=== PATIENT | female | born 1960 | race Caucasian/White ===

== ENCOUNTER 2016-10-28 11:33 | Inpatient (IN) | payer OTHER ==
[~2016-10-28] VITALS: Ht 165.1 cm; Wt 56.8 kg
[2016-10-28 14:11] LABS: BASOPHILS 0.1 % (0.0-2.0); EOSINOPHILS 0.1 % (0-7); HEMOGLOBIN 10.2 g/dL (12-16); IMMATURE GRANULOCYTES 0.3 % (0-5); LYMPHOCYTES 3.7 % (15-50); MCH 29.2 pg (26.0-34.0); MCHC 32.9 g/dL (31.0-37.0); MCV 88.8 fL (80.0-100.0); MEAN PLATELET VOLUME 9.1 fL (7.4-10.4); MONOCYTES 7.9 % (2-11); NEUTROPHILS 87.9 % (40-80); PLATELET COUNT 228 10x3/uL (130-400); RBC 3.49 10x6/uL (4.00-5.40); RDW 12.7 % (11.5-14.5); WBC 17.5 10x3/uL (4.8-10.8)
[2016-10-28 14:38] LABS: ALBUMIN 2.3 g/dL (3.4-5.0); BILIRUBIN - TOTAL 0.4 mg/dL (0.2-1.3); CALCIUM 8.4 mg/dL (8.5-10.1); CARBON DIOXIDE 23.3 mmol/L (21.0-32.0); CREATININE - SERUM 1.5 mg/dL (0.6-1.3); POTASSIUM - SERUM 3.3 mmol/L (3.5-5.1); PROTEIN - SERUM 5.5 g/dL (6.4-8.2)
[2016-10-28 16:00] VITALS: BP 139/77
--- NOTE | 2016-10-28 19:30 | NUR ---
resting quietly [id number] resp unlabored deniesany needs or discomfort nad noted
[2016-10-28 20:00] VITALS: BP 116/57
[2016-10-29] VITALS: BP 111/68
[2016-10-29 04:00] VITALS: BP 118/73
[2016-10-29 08:00] VITALS: BP 166/68
--- NOTE | 2016-10-29 08:45 | NUR ---
PATIENT IS RESTING IN HER BED, HOB UP 45 DEGREES. AWAKE AND ALERT. SHE STATES THAT SHE WAS ABLE TO EAT SOME OF HER EGGS AND DRINK SOME OF HER COFFEE THIS MORNING AND THAT IS MORE THAN SHE HAS BEEN ABLE TO DO SINCE TUESDAY. "FOOD ACTUALLY TASTED LIKE IT SHOULD THIS MORNING." ENCOURAGED HER TO ORDER FOODS THAT SOUND GOOD TO HER WHILE FILLING OUT HER MENU FOR THE DAY. HER CALL LIGHT IS WITHIN HER REACH. INSTRUCTED HER TO CALL FOR ANY NEEDS, QUESTIONS. FRESH WATER PROVIDED.
[2016-10-29 09:58] LABS: BASOPHILS 0.1 % (0.0-2.0); EOSINOPHILS 0.4 % (0-7); HEMATOCRIT 31.4 % (36.0-48.0); HEMOGLOBIN 10.2 g/dL (12-16); IMMATURE GRANULOCYTES 0.5 % (0-5); LYMPHOCYTES 8.1 % (15-50); MCH 29.2 pg (26.0-34.0); MCHC 32.5 g/dL (31.0-37.0); MONOCYTES 8.8 % (2-11); NEUTROPHILS 82.1 % (40-80); PLATELET COUNT 269 10x3/uL (130-400); RBC 3.49 10x6/uL (4.00-5.40); RDW 12.8 % (11.5-14.5)
[2016-10-29 10:09] LABS: ANION GAP 11.4 mmol/L (8-16); CALCIUM 8.1 mg/dL (8.5-10.1); CARBON DIOXIDE 24.6 mmol/L (21.0-32.0); CREATININE - SERUM 1.2 mg/dL (0.6-1.3)
[2016-10-29 10:12] LABS: WBC 13.1 10x3/uL (4.8-10.8)
[2016-10-29 12:00] VITALS: BP 125/68
[2016-10-29 12:16] VITALS: Ht 165.1 cm; Wt 56.8 kg
[2016-10-29 15:58] LABS: % SATURATION 12 % (15-55); IRON 16 ug/dl (35-150); TOTAL IRON BIND CAPACITY 125 ug/dl (260-445); UNSAT IRON BIND CAPACITY 109 ug/dl (150-375)
[2016-10-29 16:00] VITALS: BP 109/54
[2016-10-29 21:01] VITALS: BP 124/75
--- NOTE | 2016-10-29 23:06 | NUR ---
INITIAL ROUNDS COMPLETED AT 1915 HRS. PT HAD C/O GARCIA AND MILD FEVER. TYLENOL 325 MG PO GIVEN. ASSESSMENT COMPLETED AT 2000 HRS. VSS. IV TO RFA WITH NS AT 150CC/HR. IV PATETN. LUNGS CTA. PT UP AD JAMEL. PM AMBIEN GIVEN AT HS. PT CURRETNLY RESTING WITH EYES CLOSED. RESP EVEN AND REGULAR. SR UPX 2, CALL LIGHT WITHIN REACH.
--- NOTE | 2016-10-30 00:19 | NUR ---
PT RESTING WITH EYES CLOSED. RESP EVEN AND REGULAR. SR UP X2, CALL LIGHT WITHIN REACH.
[2016-10-30 01:01] VITALS: BP 117/66
--- NOTE | 2016-10-30 03:02 | NUR ---
PT RESTING WITH EYES CLOSED. RESP EVEN AND REGULAR. SR UP X2, CALL LIGHT WITHIN REACH.
--- NOTE | 2016-10-30 04:19 | NUR ---
PT RESTING WITH EYES CLOSED. RESP EVEN AND REGULAR. SR UP X2, CALL LIGHT WITHIN REACH.
[2016-10-30 04:57] VITALS: BP 131/77
--- NOTE | 2016-10-30 06:04 | NUR ---
VSS THROUGHOUT NIGHT. PT STATED TYLENOL HELPED GARCIA. K+ 3.5. KCL 40 MEQ MIXED IN 180CC OF JUICE GIVEN. NEEDS MET; PAT CONTINUE TO MONITOR.
--- NOTE | 2016-10-30 07:10 | NUR ---
RECEIVED REPORT. ASSUMED CARE OF PATIENT. PATIENT SITTING UP IN BED WITH EYES OPEN, DENIES NEEDS AT THIS TIME. RESP EVEN AND UNLABORED. PATEINT REPORTS URINATING WITHOUT DIFFICULTY. NO DISTRESS. CALL LIGHT WITHIN REACH.
[2016-10-30 08:06] VITALS: BP 125/74
[2016-10-30] MEDS ORDERED: LEVAQUIN500 MG PO (09:44)
[2016-10-30 09:45] LABS: BASOPHILS 0.3 % (0.0-2.0); EOSINOPHILS 1.6 % (0-7); HEMOGLOBIN 9.7 g/dL (12-16); IMMATURE GRANULOCYTES 4.1 % (0-5); LYMPHOCYTES 17.5 % (15-50); MCHC 32.3 g/dL (31.0-37.0); MCV 89.8 fL (80.0-100.0); MEAN PLATELET VOLUME 8.6 fL (7.4-10.4); MONOCYTES 10.7 % (2-11); NEUTROPHILS 65.8 % (40-80); PLATELET COUNT 286 10x3/uL (130-400); RBC 3.34 10x6/uL (4.00-5.40); RDW 13.2 % (11.5-14.5)
[2016-10-30 09:47] LABS: WBC 8.7 10x3/uL (4.8-10.8)
--- NOTE | 2016-10-30 11:21 | NUR ---
20 GAUGE IV REMOVED FROM RIGHT FOREARM AT THIS TIME DUE TO PATIENT COMPLAIN OF PAIN TO AREA AND TISSUE NOTED TO BE COOL TO TOUCH. NO SWOLLEN OR EDEMATOUS. CATHETER TIP IN TACT. 2X2 GUAZE APPLIED AND SECURED WITH TAPE. NO BLEEDING FROM SITE. PATIENT DISCHARGE ORDERS ARE BEING PROCESSED AT THIS TIME. NO DISTRESS.
[2016-10-30 12:00] VITALS: BP 137/77
--- NOTE | 2016-10-30 13:26 | NUR ---
DISCHARGE INSTRUCTIONS PROVIDED TO PATIENT AT THIS TIME. VERBALIZED UNDERSTANDING OF ALL INSTRUCTIONS PROVIDED. PATIENT WAITING FOR HER TO RETURN TO TAKE HER HOME. NO DISTRESS AT THIS TIME. FRESH ICE WATER PROVIDED.
--- NOTE | 2016-10-30 13:45 | NUR ---
PATIENT LEFT UNIT AMBULATING PER HER CHOICE AT THIS TIME. NO DISTRESS UPON LEAVING UNIT. PATIENT DISCHARGED TO HOME. PATIENT LEFT UNIT WITH ALL PERSONAL BELONGINGS.
[2016-11-01 12:12] LABS: FOLATE (FOLIC ACID) - SERUM 7.1 ng/mL (>3.0)
== END 2016-10-30 13:45 | disposition home or self-care (01) | DRG 690 ==
LOC: D.M2 11:33
PROVIDERS: ADMIT Family Medicine
DX: N10 Acute pyelonephritis (principal); E87.6 Hypokalemia; D64.9 Anemia, unspecified